=== PATIENT | female | born 1950 | race Caucasian/White ===

== ENCOUNTER → 2016-07-11 | Outpatient (CLI) | payer MEDICARE, OTHER | LOC: MW.CHOBGYN 08:00 | PROVIDERS: ATTEND Nurse Practitioner Women's Health | DX: J32.9 Chronic sinusitis, unspecified (principal); Z01.419 Encounter for gynecological examination (general) (routine) without abnormal findings; Z23 Encounter for immunization | CPT/HCPCS: 90670; 99215; G0009 ==

== ENCOUNTER → 2016-07-14 | Outpatient (CLI) | payer MEDICARE, OTHER ==
--- NOTE | 2016-07-14 16:39 | MY ---
EXAMINATION: Bilateral digital mammography utilizing CAD. HISTORY: Screening exam. Comparison is made to previous studies dated 06/10/2015, 06/01/2015, 5. FINDINGS: Bilateral scattered fibroglandular densities. No suspicious calcifications, masses or architectural distortions. No pathologic appearing lymph nodes, no abnormal skin thickening or nip ple inversion. CAD highlighted regions appear normal at this time. IMPRESSION: BI-RADS category I - negative mammogram. Continued screening according to ACR-ACS gu idelines suggested. THE FALSE-NEGATIVE RATE OF MAMMOGRAM IS APPROXIMATELY 10%. MANAGEMENT OF A PALPABLE ABNORMALITY MUST BE BASED UPON CLINICAL GROUNDS. SENSITIVITY FOR DETECTION OF ABNORMALITIES IN DENSE BREASTS IS LOW. NOTE: A letter will be sent to the patient regarding findings. [facility] -- SASHA Sung [phone] - FAX [phone]
== END ==
LOC: MW.MAM 14:54
PROVIDERS: ATTEND Nurse Practitioner Women's Health
DX: Z12.31 Encounter for screening mammogram for malignant neoplasm of breast (principal)
CPT/HCPCS: G0202; G0202-26

== ENCOUNTER 2017-11-02 09:09 | Day surgery (SDC) | payer MEDICARE, OTHER ==
[~2017-11-02 09:09] MED LIST: Lactated Ringers 1,000 ML IV SCH; Lidocaine 2% 5 ML SDV ONE; Propofol 200 MG/20 ML SDV ONE; Sodium Chloride 0.9% 10 ML Syringe FLUSH PRN; Sodium Chloride 0.9% 2.5 ML Syringe FLUSH PRN; fentaNYL 100 MCG/2 ML SDV ONE
--- NOTE | 2017-11-02 09:49 | PCM.PREANE ---
Preanesthetic Assessment - Anesthesia/Transfusion/Family Hx Anesthesia History: Prior Anesthesia Without Reaction Family History of Anesthesia Reaction: No Transfusion History: No Prior Transfusion(s) - Review of Systems General: No Symptoms Pulmonary: No Symptoms Cardiovascular: No Symptoms Gastrointestinal: No Symptoms Neurological: No Symptoms Other: Reports: None - Physical Assessment NPO Status Date: 11/01/17 Height: 1.52 m Weight: 84.822 kg ASA Class: 2 Mental Status: Alert & Oriented x3 Dentition: Reports: Normal Dentition ROM/Head Extension: Full Lungs: Clear to Auscultation, Normal Respiratory Effort Cardiovascular: Regular Rate, Regular Rhythm - Allergies Allergies/Adverse Reactions: Allergies Allergy/AdvReac Type Severity Reaction Status Date / Time ampicillin Allergy Rash Unverified 10/27/17 07:54 Penicillins Allergy Rash Unverified 10/27/17 07:54 - Acknowledgements Anesthesia Type Planned: MAC Pt an Appropriate Candidate for the Planned Anesthesia: Yes Alternatives and Risks of Anesthesia Discussed w Pt/Guardian: Yes Pt/Guardian Understands and Agrees with Anesthesia Plan: Yes Additional Comments: PMH: pt denies hx of HepC, and denies hx of HTN PreAnesthesia Questionnaire HEENT History: Reports: Other (See Below) Other HEENT History: Keratoconus, wears contacts Gastrointestinal History: Reports: Diverticulosis Other Gastrointestinal History: occasional diarrhea Musculoskeletal History: Reports: Arthritis, Fracture Other Musculoskeletal History: hx fx wrist Neurological History: Reports: None Psychiatric History: Reports: None Endocrine/Metabolic History: Reports: Obesity/BMI 30+, Osteopenia Hematologic History: Reports: None Dermatologic History: Reports: None - Past Surgical History Head Surgeries/Procedures: Reports: None GI Surgical History: Reports: Other (See Below) Other GI Surgeries/Procedures: repair of "rectal fibula" Endocrine Surgical History: Reports: None Neurological Surgical History: Reports: None Musculoskeletal Surgical History: Reports: Hip Replacement Other Musculoskeletal Surgeries/Procedures:: rt LYNN - SUBSTANCE USE Smoking Status *Q: Never Smoker Recreational Drug Use History: No - HOME MEDS Home Medications: Home Meds Bifidobacterium Infantis [Align] 1 tab PO DAILY 10/27/17 [History] Cholecalciferol (Vitamin D3) [Vitamin D3] 2,000 units PO DAILY 10/27/17 [History ] Dextran 70/Hypromellose [Artificial Tears] 1 drop EYEBOTH DAILY 10/27/17 [ History] Fexofenadine [Kami] 1 tab PO DAILY 10/27/17 [History] Fish Oil/[place]-3 Fatty Acids [Fish Oil 1,000 MG] 1,000 mg PO DAILY 10/27/17 [ History] Fluticasone Propionate [Flonase Allergy Relief] 2 spray NASBOTH DAILY 10/27/17 [ History] Multivitamin with Minerals [Multiple Vitamin] 1 tab PO DAILY 10/27/17 [History] Vitamin E 400 units PO DAILY 10/27/17 [History] - CURRENT (IN HOUSE) MEDS Current Meds: Current Medications Lactated Ringer's (Ringers, Lactated) 1,000 mls @ 125 mls/hr IV ASDIRECTED NIKO Sodium Chloride (Saline Flush) 10 ml FLUSH ASDIRECTED PRN PRN Reason: Keep Vein Open Sodium Chloride (Saline Flush) 2.5 ml FLUSH ASDIRECTED PRN PRN Reason: Keep Vein Open Sodium Chloride (Saline Flush) 10 ml FLUSH ASDIRECTED PRN PRN Reason: Keep Vein Open Sodium Chloride (Saline Flush) 2.5 ml FLUSH ASDIRECTED PRN PRN Reason: Keep Vein Open Discontinued Medications Fentanyl (Sublimaze) Confirm Administered Dose 100 mcg .ROUTE .STK-MED ONE Stop: 11/02/17 06:53 Lidocaine (Xylocaine-Mpf 2%) Confirm Administered Dose 5 ml .ROUTE .STK-MED ONE Stop: 11/02/17 06:53 Propofol (Diprivan 20 Ml) Confirm Administered Dose 400 mg .ROUTE .STK-MED ONE Stop: 11/02/17 06:53
--- NOTE | 2017-11-02 10:49 | PCM.POSTAN ---
POST ANESTHESIA ASSESSMENT - MENTAL STATUS Mental Status: Alert, Oriented - RESPIRATORY Respiratory Status: Respiratory Rate WNL, Airway Patent, O2 Saturation Stable - CARDIOVASCULAR CV Status: Pulse Rate WNL, Blood Pressure Stable - GASTROINTESTINAL GI Status: No Symptoms - POST OP HYDRATION Hydration Status: Adequate & Stable
--- NOTE | 2017-11-02 11:36 | PCM48HPAN ---
Post Anesthesia Note - EVALUATION WITHIN 48HRS OF ANESTHETIC Vital Signs in Normal Range: Yes Patient Participated in Evaluation: Yes Respiratory Function Stable: Yes Airway Patent: Yes Cardiovascular Function Stable: Yes Hydration Status Stable: Yes Pain Control Satisfactory: Yes Nausea and Vomiting Control Satisfactory: Yes Mental Status Recovered: Yes Resp Rate: 14
--- NOTE | 2017-11-02 12:49 | PCM.OPNOTE ---
- General Post-Op/Procedure Note Date of Surgery/Procedure: 11/02/17 Operative Procedure(s): Diagnostic colonoscopy Findings: Confluent cecal mass/lesion just above the terminal ileum Pre Op Diagnosis: Change in bowel habits Post-Op Diagnosis: Cecal mass, diverticulosis, grade 2 hemorrhoids Anesthesia Technique: MAC Primary Surgeon: Kristyn Pratt Condition: Good Free Text/Narrative:: Intake & Output 11/01/17 11/02/17 11/02/17 22:59 06:59 14:59 Intake Total 700 Balance 700
--- NOTE | 2017-11-02 14:08 | OR ---
SURGEON: CULLEN HERNANDEZ MD DATE OF PROCEDURE: 11/02/2017 PREOPERATIVE DIAGNOSIS: Change in bowel habits. POSTOPERATIVE DIAGNOSES: 1. Grade 2 hemorrhoids. 2. Diverticulosis. 3. Cecal mass. PROCEDURE PERFORMED: Diagnostic colonoscopy. ANESTHESIA: MAC. INSTRUMENT USED: Olympus colonoscope. EXTENT OF EXAM: To the cecum. PREPARATION: Good. LIMITATIONS: None. INDICATION FOR EXAMINATION: The patient is a 67-year-old female, who presents with change in her bowel habits. We discussed the need for diagnostic colonoscopy. I explained the procedure, expected perioperative course, and risks including bleeding, infection, damage to surrounding structures including perforation. The patient verbalized understanding and wishes to proceed. PROCEDURE IN DETAIL: The patient was brought to the endoscopy suite and placed in a left lateral decubitus position. A time-out was completed verifying the patient's name, age, date of , allergies, and procedure to be performed. Monitored anesthesia care was induced and continuous oxygen was provided via nasal cannula throughout the procedure. After adequate sedation was achieved, a digital rectal exam was performed. This exam revealed a mild hemorrhoidal disease. The a well lubricated colonoscope was then inserted into the rectum and advanced under direct visualization to the level of the cecum. The cecum was identified by both visual and anatomic landmarks. A photograph was taken of the cecal cap as well as with the scope retroflexed within the cecum. Just above the cecal cap overlying the terminal ileum, was an area of irregularity. I was unable to determine if this was just tissue from the terminal ileum versus a flat sessile polyp. Multiple biopsies were taken. These biopsies were labeled as cecal mass. The scope was then fully withdrawn while examining the color, texture, anatomy, and integrity of the mucosa from the cecum to the anal canal. The patient has known diverticulosis and I noted scattered diverticula within the sigmoid colon. The remainder of the colonoscopy was normal. The scope was then brought into the rectum and retroflexed to allow visualization of the anal canal opening. This was consistent with grade 2 hemorrhoids. The scope was then straightened out and fully withdrawn. The cecum to anus time was 12 minutes. The patient tolerated the procedure well and was taken to PACU in stable condition. ENDOSCOPIC DIAGNOSIS: Cecal mass. RECOMMENDATIONS: I visited with the patient and her in the postoperative care area regarding the unusual finding within the cecum. I will follow up on the biopsy results and determine the next steps and treatment from there. She will come see me in clinic in 2 weeks. ALEXANDRO YOUSIF /[id number] MTDD
== END 2017-11-02 11:35 | disposition home or self-care (01) ==
LOC: MW.SDS 09:09
PROVIDERS: ATTEND Surgery
DX: R19.4 Change in bowel habit (principal); D12.0 Benign neoplasm of cecum; K64.1 Second degree hemorrhoids; K57.30 Diverticulosis of large intestine without perforation or abscess without bleeding; E66.9 Obesity, unspecified; Z68.36 Body mass index [BMI] 36.0-36.9, adult; Z79.899 Other long term (current) drug therapy; Z88.0 Allergy status to penicillin; Z88.1 Allergy status to other antibiotic agents
CPT/HCPCS: 45380; J2704; J3010; J7120